=== PATIENT | female | born 1955 | race Caucasian/White ===

== ENCOUNTER → 2016-10-16 | Outpatient (CLI) | payer BC ==
[~2016-10-16] MED LIST: AMIT50TA3 PO; ASCO-324 PO; CYCL15CA18 PO; ESTR0.5T15 PO; FLUO20CA30 PO; HYDR-3989 PO; LORA10TA7 PO; LOSA1TAB95 PO; MEDR5TAB PO; NAPR500T PO; OMEP20CA10 PO
--- NOTE | 2016-10-17 08:43 | DI ---
Indication: ITS.REASON: R10.2 PELVIC AND PERINEAL PAIN PROCEDURE: PELVIS MINIMUM 3 VIEW: Encounter: Initial Comparison: None Findings: There is no acute fracture, dislocation or malalignment identified. Degenerative disk disease at L5-S1. Pubic symphysis and sacroiliac joints appear intact. Hip joint spaces are maintained. Impression: No acute osseous abnormality. .
== END ==
LOC: IMA 17:50
PROVIDERS: ATTEND Family Medicine
DX: R10.2 Pelvic and perineal pain (principal); M51.37 Other intervertebral disc degeneration, lumbosacral region

== ENCOUNTER → 2016-11-26 | Outpatient (CLI) | payer BC ==
--- NOTE | 2016-11-26 13:32 | DI ---
Indication: ITS.REASON: S80.02XA Contusion of left knee, initial encounter; S80.01XA Cont PROCEDURE: MRI KNEE BILATERAL W/O CONTRAS: Encounter: Initial Comparison: None FINDINGS: Right knee: There is no abnormal marrow signal to suggest occult bony injury. There is a trace knee effusion. There is mild chondromalacia of the posterior surface of the patella involving the medial facet superiorly without unstable osteochondral defect. There is a small amount of prepatellar edema. The quadriceps and patellar tendons are unremarkable. The cartilage surfaces of the femoral condyles are normal. The ACL, PCL, MCL, and LCL are unremarkable. The medial meniscus Normal. The lateral meniscus Normal. No definite periarticular cyst. Left knee: There is no abnormal marrow signal to suggest occult bony injury. There is minimal knee effusion. There is no focal chondromalacia of the posterior surface of the patella involving the medial facet superiorly without unstable osteochondral defect. There is a small amount of prepatellar edema. The quadriceps and patellar tendons are unremarkable. The cartilage surfaces of the femoral condyles are normal. The ACL, PCL, MCL, and LCL are unremarkable. The medial meniscus demonstrates some high signal along the tibial articular surface in the mid body region. The lateral meniscus demonstrates some high signal centrally within the mid body without definite extension to an articular surface. No definite periarticular cyst. IMPRESSION: Right knee: Small amount of cartilage irregularity along the medial facet of the dorsum of the patella with small knee effusion. No definite unstable osteochondral defect. Small amount of prepatellar edema which could suggest prepatellar bursitis. No definite ligamentous or meniscal injury. Left knee: No definite ligamentous injury. Small amount of high signal along the tibial articular surface of the medial meniscus in the mid body with central high signal in the lateral meniscus. Minimal knee effusion. Mild prepatellar edema. No unstable osteochondral defect or significant chondral malacia. .
== END ==
LOC: IMA 11-14 13:28
PROVIDERS: ATTEND Orthopaedic Surgery
DX: M94.8X8 Other specified disorders of cartilage, other site (principal); M25.461 Effusion, right knee; R60.0 Localized edema; R93.7 Abnormal findings on diagnostic imaging of other parts of musculoskeletal system